=== PATIENT | female | born 1975 | race African-American/Black ===

== ENCOUNTER 2018-04-05 10:00 | Outpatient (RCR) | payer OTHER | END 2018-05-23 | disposition home or self-care (01) | LOC: WSOT | DX: M65.332 Trigger finger, left middle finger (principal); M65.331 Trigger finger, right middle finger; X50.3XXA Overexertion from repetitive movements, initial encounter; Y92.59 Other trade areas as the place of occurrence of the external cause; Y99.0 Civilian activity done for income or pay; Z79.84 Long term (current) use of oral hypoglycemic drugs; Z79.899 Other long term (current) drug therapy | CPT/HCPCS: J1030 ==

== ENCOUNTER 2018-06-28 09:00 | Outpatient (RCR) | payer OTHER | END 2018-09-08 | disposition home or self-care (01) | LOC: WSOT | DX: M65.331 Trigger finger, right middle finger (principal); M65.332 Trigger finger, left middle finger; M65.342 Trigger finger, left ring finger; X50.3XXA Overexertion from repetitive movements, initial encounter; Z79.84 Long term (current) use of oral hypoglycemic drugs; Z79.899 Other long term (current) drug therapy ==

== ENCOUNTER 2019-01-15 07:58 | Outpatient (RCR) | payer OTHER | END 2019-02-11 15:17 | disposition home or self-care (01) | LOC: WSOH 07:58 | DX: M65.332 Trigger finger, left middle finger (principal) ==

== ENCOUNTER 2019-04-17 08:29 | Outpatient (RCR) | payer OTHER | END 2019-05-09 13:14 | disposition home or self-care (01) | LOC: WSOH 08:29 | DX: M65.332 Trigger finger, left middle finger (principal); X50.3XXA Overexertion from repetitive movements, initial encounter; Y92.59 Other trade areas as the place of occurrence of the external cause; Y93.89 Activity, other specified; Y99.0 Civilian activity done for income or pay; E11.9 Type 2 diabetes mellitus without complications; Z79.84 Long term (current) use of oral hypoglycemic drugs ==